=== PATIENT | female | born 1975 | race African-American/Black ===

== ENCOUNTER 2016-11-15 06:37 | Emergency (ER) | payer OTHER ==
[~2016-11-15] VITALS: Ht 170.2 cm; Wt 107.2 kg
[~2016-11-15 06:37] MED LIST: LISI-360 PO; SIMV20 PO
[2016-11-15 06:43] VITALS: BP 176/105; PULSE 83; RESP 16; TEMP 98.1; O2SAT 99
[2016-11-15 06:55] VITALS: BP 176/105; PULSE 83; RESP 18; TEMP 98.1; O2SAT 99
[2016-11-15] MEDS ORDERED: LISI10TA3 PO (06:55)
[2016-11-15] MEDS ORDERED: SIMV20TA PO (06:55)
--- NOTE | 2016-11-15 07:14 | PD ---
HPI Chief Complaint: Headache Time Seen by Provider: 07:04 Travel History International Travel<30 days: No Contact w/Intl Traveler<30days: No Traveled to known affect area: No History of Present Illness HPI 41yo F with PMH of HTN and migraine headache presents to the ED with c/o left sided headache for 2 days. States it is associated with nausea and NBNB vomiting, photophobia. It is now constant on left caodaism region. Pt tried to take her imitrex but vomited after. Denies any fever, neck pain, visual changes , focal weakness or numbness, chest pain, sob, abdominal pain. Pt states she had similar headache a few years ago. PFSH Past Medical History High Cholesterol: Yes Diminished Hearing: No Hypertension: Yes Immunizations Current: Yes Tetanus Vaccination: > 5 Years Influenza Vaccination: Yes ?: Unknown Past Surgical History Surgical History: No Previous Surgery Social History Alcohol Use: No Tobacco Use: No Substance Use: No Allergies-Medications (Allergen,Severity, Reaction): Coded Allergies: Latex (Verified Allergy, Severe, 11/15/16) Reported Meds & Prescriptions Reported Meds & Active Scripts Active Reported Simvastatin 20 Mg Tab 20 Mg PO DAILY Lisinopril 10 Mg Tab 10 Mg PO DAILY Review of Systems Except as stated in HPI: all other systems reviewed are Neg Physical Exam Narrative GENERAL: 41yo F in mild distress. SKIN: Focused skin assessment warm/dry. HEAD: Atraumatic. Normocephalic. EYES: Pupils equal and round at 3mm bilaterally. EOMI. No scleral icterus. No injection or drainage. ENT: No nasal bleeding or discharge. Mucous membranes pink and moist. NECK: No nuchal rigidity. CARDIOVASCULAR: Regular rate and rhythm. No murmur appreciated. RESPIRATORY: No accessory muscle use. Clear to auscultation. Breath sounds equal bilaterally. GASTROINTESTINAL: Abdomen soft, non-tender, nondistended. No rebound tenderness or guarding. MUSCULOSKELETAL: No obvious deformities. No clubbing. No cyanosis. No edema. NEUROLOGICAL: Awake and alert. No obvious cranial nerve deficits. Motor grossly within normal limits. Normal speech. PSYCHIATRIC: Appropriate mood and affect; insight and judgment normal. Data Data Last Documented VS Vital Signs Date Time Temp Pulse Resp B/P Pulse Ox O2 Delivery O2 Flow Rate FiO2 11/15/16 08:06 92 16 139/69 100 Room Air 11/15/16 06:55 98.1 Orders Ondansetron Inj (Zofran Inj) (11/15/16 07:15) Ketorolac Inj (Toradol Inj) (11/15/16 07:15) Sodium Chlor 0.9% 1000 Ml Inj (Ns 1000 M (11/15/16 07:15) Prochlorperazine Inj (Compazine Inj) (11/15/16 08:00) MDM Medical Decision Making Medical Screen Exam Complete: Yes Emergency Medical Condition: Yes Differential Diagnosis Migraine headache vs. tension headache vs. sinus headache Narrative Course 41yo F with history of migraine headache here with left sided headache associated with photophobia and nausea. No red flags. Will give toradol and zofran and reevaluate. Pt given toradol, zofran and compazine. Reevaluated at bedside and headache has resolved. Pt is no longer nauseous. BP is now 139/69. Return precautions given. Diagnosis Primary Impression: Headache Qualified Code: R51 - Acute nonintractable headache, unspecified headache type Patient Instructions: General Instructions Departure Forms: Tests/Procedures Additional Instructions: Please follow up with your PMD in 3-7 days. Return to the ED if symptoms worsen. Med/Other Pt SpecificInfo: Prescription(s) given Scripts Acetaminophen (Tylenol)325 Mg Log800 Mg PO Q6H PRN (PAIN SCALE 1 TO 4) #20 TAB Ref 0 Prov:MaloneJayna 11/15/16 Disposition: 01 DISCHARGE HOME Condition: Stable Jayna Malone DO Nov 15, 2016 07:14
[2016-11-15] MEDS ORDERED: SODIUM CHLOR 0.9% 1000 ML INJ 1,000 ML IV ONE (07:15)
[2016-11-15] MEDS ORDERED: ONDANSETRON HCL 4 MG/2 ML VIAL IV PUSH ONE (07:15)
[2016-11-15] MEDS ORDERED: KETOROLAC TROMETHAMINE 30 MG/ML (IVP) VIAL IV PUSH ONE (07:15)
[2016-11-15] MEDS ORDERED: PROCHLORPERAZINE INJ 10 MG/2 ML VIAL IV PUSH ONE (08:00)
[2016-11-15 08:06] VITALS: BP 139/69; PULSE 92; RESP 16; O2SAT 100
[2016-11-15] MEDS ORDERED: TYLE325T PO (08:21)
== END 2016-11-15 08:31 | disposition home or self-care (01) ==
LOC: PHED 06:37
DX: R51 Headache (principal); I10 Essential (primary) hypertension
CPT/HCPCS: 96361; 96374; 96375; 99284; J0780; J1885; J2405; J7030

== ENCOUNTER → 2016-12-31 | Outpatient (CLI) | payer OTHER ==
[~2016-12-31] MED LIST changes: -LISI-360 PO; +LISI10TA3 PO; -SIMV20 PO; +SIMV20TA PO; +TYLE325T PO
[2016-12-31 08:16] LABS: AUTOMATED NEUTROPHIL # 3.9 TH/MM3 (1.8-7.7); BASOPHIL % 0.4 % (0.0-2.0); EOSINOPHIL # 0.1 TH/MM3 (0-0.4); EOSINOPHIL % 1.4 % (0.0-4.0); HEMATOCRIT 37.5 % (35.0-46.0); HEMO FLAGS DIFF FINAL; LYMPH % 43.2 % (9.0-44.0); LYMPHOCYTE # 3.6 TH/MM3 (1.0-4.8); MEAN CELL VOLUME 75.5 FL (80.0-100.0); MEAN CORPUSCULAR HEMOGLOBIN 24.5 PG (27.0-34.0); MEAN CORPUSCULAR HGB CONC 32.4 % (32.0-36.0); MONO % 7.5 % (0.0-8.0); NEUT % 47.5 % (16.0-70.0); PLATELET COUNT 363 TH/MM3 (150-450); RED BLOOD COUNT 4.97 MIL/MM3 (4.00-5.30); RED CELL DISTRIBUTION WIDTH 14.1 % (11.6-17.2); WHITE BLOOD COUNT 8.2 TH/MM3 (4.0-11.0)
[2016-12-31 08:30] LABS: ANION GAP 6 MEQ/L (5-15); AST (GOT) 13 U/L (15-37); BICARBONATE 26.6 MEQ/L (21.0-32.0); BLOOD UREA NITROGEN 10 MG/DL (7-18); CHLORIDE 105 MEQ/L (98-107); GLOMERULAR FILTRATION RATE 130 ML/MIN (>89); GLUCOSE,FASTING 97 MG/DL (74-99); POTASSIUM 3.3 MEQ/L (3.5-5.1); SODIUM (NA) 138 MEQ/L (136-145)
[2016-12-31 08:31] LABS: ALT (GPT) 22 U/L (10-53)
[2016-12-31 08:39] LABS: ALKALINE PHOSPHATASE 103 U/L (45-117); FREE T4 3.78 NG/DL (0.76-1.46); HDL CHOLESTEROL 43.5 MG/DL (40.0-60.0); LDL CHOLESTEROL 79 MG/DL (0-99); TOTAL BILIRUBIN ADULT 0.4 MG/DL (0.2-1.0)
[2016-12-31 16:08] LABS: HEMOGLOBIN A1a 1.2 %; HEMOGLOBIN A1b 1.9 %; HEMOGLOBIN Ao 84.7 %; HEMOGLOBIN LA1C 1.9 %; HEMOGLOBIN P3 3.8 %
== END ==
LOC: CLAB 07:43
PROVIDERS: ATTEND Family Medicine
DX: G43.909 Migraine, unspecified, not intractable, without status migrainosus (principal); I10 Essential (primary) hypertension; K21.9 Gastro-esophageal reflux disease without esophagitis; R94.6 Abnormal results of thyroid function studies; E78.2 Mixed hyperlipidemia; R73.02 Impaired glucose tolerance (oral); Z11.4 Encounter for screening for human immunodeficiency virus [HIV]
CPT/HCPCS: 36415; 80053; 80061; 83036; 84439; 84443; 85025; 86703

== ENCOUNTER 2017-06-12 10:55 | Emergency (ER) | payer OTHER ==
[~2017-06-12] VITALS: Ht 170.2 cm; Wt 100.0 kg
[2017-06-12 11:06] VITALS: BP 194/86; PULSE 105; RESP 16; TEMP 98.3; O2SAT 99
[2017-06-12 11:20] LABS: BILIRUBIN, URINE NEG (NEG); BLOOD, URINE NEG (NEG); GLUCOSE,URINE NEG (NEG); KETONE, URINE NEG (NEG); NITRITE,URINE NEG (NEG); URINE LEUKOCYTE ESTERASE NEG (NEG)
[2017-06-12] MEDS ORDERED: ONDANSETRON ODT 4 MG TAB PO ONE (11:30)
[2017-06-12] MEDS ORDERED: LISI10TA PO (11:31)
--- NOTE | 2017-06-12 11:32 | PD ---
HPI Chief Complaint: GI Complaint Time Seen by Provider: 11:22 Travel History International Travel<30 days: No Contact w/Intl Traveler<30days: No Traveled to known affect area: No History of Present Illness HPI 41-year-old female states she has been having nausea with a couple episodes of nonbloody emesis over the past couple of days. She states that she had this last week but it resolved on its own. She states her last menstrual cycle was about the 11th of last month. She states her cycles are usually pretty regular. She denies any other concurrent complaints including fever, abdominal pain, diarrhea, congestion or other acute concerns. Quality is nonbloody. Severity is 3 episodes. She denies specific modifying factors. She states she has had this issue in the past. [facility] Past Medical History High Cholesterol: Yes Diminished Hearing: No Hypertension: Yes Immunizations Current: Yes ?: Unknown LMP: "LAST MONTH" Social History Alcohol Use: No Tobacco Use: No Substance Use: No Allergies-Medications (Allergen,Severity, Reaction): Coded Allergies: latex (Unverified Allergy, Severe, 06/12/17) Reported Meds & Prescriptions Reported Meds & Active Scripts Active Zofran Odt (Ondansetron Odt) 4 Mg Tab 4 Mg SL Q6HR PRN Reported Lisinopril-Hctz 10-12.5 Mg Tab 1 Tab PO DAILY Simvastatin 20 Mg Tab 20 Mg PO DAILY Review of Systems Except as stated in HPI: all other systems reviewed are Neg Physical Exam Narrative GENERAL: 41-year-old female who is well-appearing SKIN: Focused skin assessment warm/dry. HEAD: Atraumatic. Normocephalic. EYES: Pupils equal and round. No scleral icterus. No injection or drainage. ENT: No nasal bleeding or discharge. Mucous membranes pink and moist. NECK: Trachea midline. No JVD. CARDIOVASCULAR: Regular rate and rhythm. RESPIRATORY: No accessory muscle use. Clear to auscultation. Breath sounds equal bilaterally. GASTROINTESTINAL: Abdomen soft, non-tender, nondistended. MUSCULOSKELETAL: No edema. NEUROLOGICAL: Awake and alert. No obvious cranial nerve deficits. Motor grossly within normal limits. Normal speech. PSYCHIATRIC: Appropriate mood and affect; insight and judgment normal. Data Data Last Documented VS Vital Signs Date Time Temp Pulse Resp B/P (MAP) Pulse Ox O2 Delivery O2 Flow Rate FiO2 06/12/17 13:39 83 16 203/87 (125) 97 Room Air 06/12/17 11:06 98.3 Orders Orders Urinalysis - C+S If Indicated (06/12/17 11:08) Ed Urine Pregnancytest Poc (06/12/17 11:08) Ondansetron Odt (Zofran Odt) (06/12/17 11:30) Oral Rehydration (06/12/17 11:45) Promethazine Inj (Phenergan Inj) (06/12/17 12:15) Complete Blood Count With Diff (06/12/17 12:54) Comprehensive Metabolic Panel (06/12/17 12:54) Iv Access Insert/Monitor (06/12/17 12:54) Ondansetron Inj (Zofran Inj) (06/12/17 13:00) Sodium Chlor 0.9% 1000 Ml Inj (Ns 1000 M (06/12/17 13:00) Ed Discharge Order (06/12/17 13:49) Labs Laboratory Tests Test 06/12/17 11:10 06/12/17 13:10 Urine Collection Type CLEAN CATCH Urine Color YELLOW Urine Turbidity CL Urine pH 7.0 Urine Specific [place] 1.020 Urine Protein NEG mg/dL Urine Glucose (UA) NEG mg/dL Urine Ketones NEG mg/dL Urine Occult Blood NEG Urine Nitrite NEG Urine Bilirubin NEG Urine Leukocyte Esterase NEG Urine RBC 0-3 /hpf Urine Squamous Epithelial Cells 6-8 /hpf Urine Amorphous Sediment MOD Microscopic Urinalysis Comment CULT NOT INDICATED White Blood Count 6.5 TH/MM3 Red Blood Count 5.12 MIL/MM3 Hemoglobin 11.9 GM/DL Hematocrit 37.7 % Mean Corpuscular Volume 73.5 FL Mean Corpuscular Hemoglobin 23.3 PG Mean Corpuscular Hemoglobin Concent 31.6 % Red Cell Distribution Width 13.0 % Platelet Count 368 TH/MM3 Mean Platelet Volume 7.9 FL Neutrophils (%) (Auto) 72.4 % Lymphocytes (%) (Auto) 21.2 % Monocytes (%) (Auto) 3.4 % Eosinophils (%) (Auto) 0.1 % Basophils (%) (Auto) 2.9 % Neutrophils # (Auto) 4.7 TH/MM3 Lymphocytes # (Auto) 1.4 TH/MM3 Monocytes # (Auto) 0.2 TH/MM3 Eosinophils # (Auto) 0.0 TH/MM3 Basophils # (Auto) 0.2 TH/MM3 CBC Comment AUTO DIFF Differential Comment AUTO DIFF CONFIRMED Blood Urea Nitrogen 7 MG/DL Creatinine 0.51 MG/DL Random Glucose 109 MG/DL Total Protein 7.3 GM/DL Albumin 3.5 GM/DL Calcium Level 9.3 MG/DL Alkaline Phosphatase 109 U/L Aspartate Amino Transf (AST/SGOT) 12 U/L Alanine Aminotransferase (ALT/SGPT) 18 U/L Total Bilirubin 0.3 MG/DL Sodium Level 137 MEQ/L Potassium Level 3.3 MEQ/L Chloride Level 104 MEQ/L Carbon Dioxide Level 26.4 MEQ/L Anion Gap 7 MEQ/L Estimat Glomerular Filtration Rate 159 ML/MIN [facility] Medical Decision Making Medical Screen Exam Complete: Yes Emergency Medical Condition: Yes Medical Record Reviewed: Yes (Past history confirmed) Interpretation(s) CBC & BMP Diagram 06/12/17 13:10 Total Protein 7.3, Albumin 3.5, Calcium Level 9.3, Alkaline Phosphatase 109, Aspartate Amino Transf (AST/SGOT) 12 L, Alanine Aminotransferase (ALT/SGPT) 18, Total Bilirubin 0.3 Differential Diagnosis Gastroenteritis, dehydration, UTI Narrative Course We will check test, urinalysis and dose with Zofran and reevaluate. Patient agrees to plan. patient still vomiting, will dose with phenergan im and reassess patient still too nauseous for po challenge, will check labs and give iv zofran labs no emergent process, Patient denies any new complaints and states that they are feeling better. No further emesis, patient happy with care, all questions answered. Patient knows that follow up is incumbent on them and to return to the emergency room immediately if new or worsening symptoms develop. Patient given strict return precautions, vitals reviewed and are normal, agrees to further workup as an outpatient. Diagnosis Primary Impression: Vomiting Qualified Codes: R11.2 - Nausea with vomiting, unspecified Patient Instructions: General Instructions Additional Instructions: return as needed, Zofran as needed, follow with primary this week, keep hydrated , keep blood pressure log Med/Other Pt SpecificInfo: Prescription(s) given Scripts Ondansetron Odt (Zofran Odt) 4 Mg Tab 4 MG SL Q6HR Y for Nausea/Vomiting, #10 TAB 0 Refills Prov: Karine Riggs MD 06/12/17 Disposition: 01 DISCHARGE HOME Condition: Stable Karine Riggs MD Jun 12, 2017 11:32
[2017-06-12 11:35] LABS: URINE COLOR YELLOW (YELLW/STRAW)
[2017-06-12 11:37] LABS: AMORPHOUS SEDIMENT, URINE MOD; RBC, URINE 0-3 /hpf (0-3)
[2017-06-12] MEDS ORDERED: ZOFR4TAB3 SL (11:52)
[2017-06-12] MEDS ORDERED: PROMETHAZINE INJ 25 MG/ML VIAL IM ONE (12:15)
[2017-06-12] MEDS ORDERED: SODIUM CHLOR 0.9% 1000 ML INJ 1,000 ML IV ONE (13:00)
[2017-06-12] MEDS ORDERED: ONDANSETRON HCL 4 MG/2 ML VIAL IV PUSH ONE (13:00)
[2017-06-12 13:17] LABS: AUTOMATED NEUTROPHIL # 4.7 TH/MM3 (1.8-7.7); BASOPHIL # 0.2 TH/MM3 (0-0.2); BASOPHIL % 2.9 % (0.0-2.0); EOSINOPHIL % 0.1 % (0.0-4.0); HEMATOCRIT 37.7 % (35.0-46.0); HEMOGLOBIN 11.9 GM/DL (11.6-15.3); LYMPH % 21.2 % (9.0-44.0); LYMPHOCYTE # 1.4 TH/MM3 (1.0-4.8); MEAN CELL VOLUME 73.5 FL (80.0-100.0); MEAN CORPUSCULAR HEMOGLOBIN 23.3 PG (27.0-34.0); MEAN CORPUSCULAR HGB CONC 31.6 % (32.0-36.0); MEAN PLATELET VOLUME 7.9 FL (7.0-11.0); MONO % 3.4 % (0.0-8.0); MONOCYTE # 0.2 TH/MM3 (0-0.9); NEUT % 72.4 % (16.0-70.0); PLATELET COUNT 368 TH/MM3 (150-450); RED BLOOD COUNT 5.12 MIL/MM3 (4.00-5.30); WHITE BLOOD COUNT 6.5 TH/MM3 (4.0-11.0)
[2017-06-12 13:26] LABS: CHLORIDE 104 MEQ/L (98-107); SODIUM (NA) 137 MEQ/L (136-145)
[2017-06-12 13:29] LABS: ALBUMIN 3.5 GM/DL (3.4-5.0); BICARBONATE 26.4 MEQ/L (21.0-32.0); CALCIUM 9.3 MG/DL (8.5-10.1); GLUCOSE,RANDOM 109 MG/DL (74-106)
[2017-06-12 13:30] LABS: BLOOD UREA NITROGEN 7 MG/DL (7-18)
[2017-06-12 13:32] LABS: ALT (GPT) 18 U/L (10-53)
[2017-06-12 13:33] LABS: AST (GOT) 12 U/L (15-37); CREATININE 0.51 MG/DL (0.50-1.00); GLOMERULAR FILTRATION RATE 159 ML/MIN (>89)
[2017-06-12 13:34] LABS: TOTAL BILIRUBIN ADULT 0.3 MG/DL (0.2-1.0); TOTAL PROTEIN 7.3 GM/DL (6.4-8.2)
[2017-06-12 13:35] LABS: ALKALINE PHOSPHATASE 109 U/L (45-117)
[2017-06-12 13:39] VITALS: BP 203/87; PULSE 83; RESP 16; O2SAT 97
[2017-06-12 14:12] VITALS: BP 186/98
== END 2017-06-12 14:45 | disposition home or self-care (01) ==
LOC: PHED 10:55
DX: R11.2 Nausea with vomiting, unspecified (principal); I10 Essential (primary) hypertension; E78.00 Pure hypercholesterolemia, unspecified; Z79.899 Other long term (current) drug therapy
CPT/HCPCS: 80053; 81001; 84703; 85025; 96372; 96374; 99284; J2405; J2550; J7030

== ENCOUNTER → 2017-07-31 | Outpatient (CLI) | payer OTHER ==
[~2017-07-31] MED LIST changes: +LISI10TA PO; -LISI10TA3 PO; -TYLE325T PO; +ZOFR4TAB3 SL
[2017-07-31 07:40] LABS: AUTOMATED NEUTROPHIL # 2.1 TH/MM3 (1.8-7.7); BASOPHIL % 0.5 % (0.0-2.0); EOSINOPHIL # 0.1 TH/MM3 (0-0.4); EOSINOPHIL % 1.6 % (0.0-4.0); HEMATOCRIT 37.1 % (35.0-46.0); LYMPH % 51.6 % (9.0-44.0); MEAN CELL VOLUME 71.1 FL (80.0-100.0); MEAN CORPUSCULAR HGB CONC 32.3 % (32.0-36.0); MEAN PLATELET VOLUME 7.9 FL (7.0-11.0); MONO % 8.9 % (0.0-8.0); MONOCYTE # 0.5 TH/MM3 (0-0.9); NEUT % 37.4 % (16.0-70.0); PLATELET COUNT 338 TH/MM3 (150-450); RED BLOOD COUNT 5.22 MIL/MM3 (4.00-5.30); WHITE BLOOD COUNT 5.8 TH/MM3 (4.0-11.0)
[2017-07-31 08:10] LABS: ALBUMIN 3.2 GM/DL (3.4-5.0); AST (GOT) 11 U/L (15-37); BICARBONATE 26.3 MEQ/L (21.0-32.0); BLOOD UREA NITROGEN 8 MG/DL (7-18); CHLORIDE 109 MEQ/L (98-107); CHOLESTEROL 111 MG/DL (120-200); CREATININE 0.49 MG/DL (0.50-1.00); GLOMERULAR FILTRATION RATE 167 ML/MIN (>89); GLUCOSE,FASTING 107 MG/DL (74-99); SODIUM (NA) 143 MEQ/L (136-145)
[2017-07-31 08:19] LABS: ALKALINE PHOSPHATASE 113 U/L (45-117); ALT (GPT) 20 U/L (10-53); CHOLESTEROL/ HDL RATIO 2.99 RATIO; HDL CHOLESTEROL 37.1 MG/DL (40.0-60.0); LDL CHOLESTEROL 65 MG/DL (0-99); TOTAL BILIRUBIN ADULT 0.4 MG/DL (0.2-1.0); TOTAL PROTEIN 6.8 GM/DL (6.4-8.2); TRIGLYCERIDES 43 MG/DL (42-150)
[2017-07-31 22:43] LABS: HEMOGLOBIN A1C 5.9 % (4.3-6.0)
== END ==
LOC: CLAB 07:05
PROVIDERS: ATTEND Family Medicine
DX: K21.9 Gastro-esophageal reflux disease without esophagitis (principal); E78.2 Mixed hyperlipidemia; E03.9 Hypothyroidism, unspecified; I10 Essential (primary) hypertension; Z11.4 Encounter for screening for human immunodeficiency virus [HIV]
CPT/HCPCS: 36415; 80053; 80061; 83036; 84439; 84443; 85025; 86703

== ENCOUNTER → 2017-09-16 | Outpatient (CLI) | payer OTHER ==
[2017-09-16 11:29] LABS: HEMATOCRIT 37.7 % (35.0-46.0); HEMOGLOBIN 12.3 GM/DL (11.6-15.3); MEAN CELL VOLUME 71.9 FL (80.0-100.0); MEAN CORPUSCULAR HEMOGLOBIN 23.5 PG (27.0-34.0); MEAN CORPUSCULAR HGB CONC 32.7 % (32.0-36.0); PLATELET COUNT 307 TH/MM3 (150-450); RED BLOOD COUNT 5.24 MIL/MM3 (4.00-5.30); RED CELL DISTRIBUTION WIDTH 15.4 % (11.6-17.2); WHITE BLOOD COUNT 5.6 TH/MM3 (4.0-11.0)
[2017-09-16 11:57] LABS: FREE T4 4.94 NG/DL (0.76-1.46)
== END ==
LOC: CLAB 10:55
PROVIDERS: ATTEND Internal Medicine Endocrinology, Diabetes & Metabolism
DX: E05.81 Other thyrotoxicosis with thyrotoxic crisis or storm (principal)
CPT/HCPCS: 36415; 84439; 84443; 84445; 85027; 86376; 86800

== ENCOUNTER 2017-10-22 09:32 | Emergency (ER) | payer OTHER ==
[~2017-10-22] VITALS: Ht 170.2 cm; Wt 96.8 kg
[2017-10-22 09:36] VITALS: BP 170/95; PULSE 113; RESP 20; TEMP 97.5; O2SAT 98
[2017-10-22] MEDS ORDERED: MEDR4PAK PO (09:57)
[2017-10-22] MEDS ORDERED: DICL50TA PO (09:57)
[2017-10-22] MEDS ORDERED: CYCL10TA PO (09:59)
[2017-10-22] MEDS ORDERED: IBUP1TAB7 PO (09:59)
[2017-10-22] MEDS ORDERED: PROP20TA3 PO (09:59)
--- NOTE | 2017-10-22 09:59 | PD ---
HPI Chief Complaint: Back/ Neck Pain or Injury Time Seen by Provider: 09:41 Travel History International Travel<30 days: No Contact w/Intl Traveler<30days: No Traveled to known affect area: No History of Present Illness HPI 41-year-old female presents to the emergency department for evaluation of left low back pain that started on Saturday while sitting in a car. Patient states the pain is exacerbated by movement. It is slightly alleviated with certain positions. Patient currently rates the pain 10/10, to the left lower back, throbbing, that radiates down the back. She denies any traumatic injury. No fevers or chills. No loss of bowel or bladder control. She denies any anesthesias or paresthesias. She denies any chest pain or shortness of breath. No abdominal pain. No nausea, vomiting, diarrhea. She denies any urinary symptoms. She reports history of hypertension and is currently on propranolol. She saw her primary care physician and was given a prescription for Flexeril. She last took this yesterday. She took ibuprofen last night as well. 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 She has not taken any medications today for pain. Patient denies any history of IV drug use. Mild severity. PFSH Past Medical History Cardiovascular Problems: Yes (htn) High Cholesterol: Yes Diminished Hearing: No Hypertension: Yes Immunizations Current: Yes LMP: last month Social History Alcohol Use: No Tobacco Use: No Substance Use: No Allergies-Medications (Allergen,Severity, Reaction): Coded Allergies: latex (Unverified Allergy, Severe, 10/22/17) Reported Meds & Prescriptions Reported Meds & Active Scripts Active Zofran Odt (Ondansetron Odt) 4 Mg Tab 4 Mg SL Q6HR PRN Reported Lisinopril-Hctz 10-12.5 Mg Tab 1 Tab PO DAILY Simvastatin 20 Mg Tab 20 Mg PO DAILY Review of Systems Except as stated in HPI: all other systems reviewed are Neg Physical Exam Narrative GENERAL: Well-nourished, well-developed female patient, ambulatory. Afebrile. SKIN: Focused skin assessment warm/dry. No skin changes. HEAD: Normocephalic. Atraumatic. EYES: No scleral icterus. No injection or drainage. NECK: Supple, trachea midline. No JVD or lymphadenopathy. CARDIOVASCULAR: Regular rhythm without murmurs, gallops, or rubs. Bilateral radial and pedal pulses are 2+. Patient is slightly tachycardic, most likely due to pain. RESPIRATORY: Breath sounds equal bilaterally. No accessory muscle use. Lung sounds are clear to auscultation. GASTROINTESTINAL: Abdomen soft, non-tender, nondistended. No abdominal tenderness to palpation. MUSCULOSKELETAL: No cyanosis, or edema. Bilateral upper and lower extremity strength 5/5. All extremities are neurovascularly intact. BACK: No obvious deformity. No CVA tenderness. Patient has no midline spinal tenderness. She has tenderness over the left lumbar paraspinal musculature. Data Data Last Documented VS Vital Signs Date Time Temp Pulse Resp B/P (MAP) Pulse Ox O2 Delivery O2 Flow Rate FiO2 10/22/17 09:36 97.5 113 20 170/95 (120) 98 Orders Orders Ketorolac Inj (Toradol Inj) (10/22/17 10:00) Orphenadrine Inj (Norflex Inj) (10/22/17 10:00) Prednisone (Deltasone) (10/22/17 10:00) MDM Medical Decision Making Medical Screen Exam Complete: Yes Emergency Medical Condition: Yes Medical Record Reviewed: Yes Differential Diagnosis Muscle strain versus muscle spasm versus herniated disc versus sciatica Narrative Course 41-year-old female presents to the emergency department for evaluation of left low back pain that started on Saturday without traumatic injury. No red flag symptoms. She denies any other associated symptoms. Symptoms are consistent with muscle strain on exam. She has not taken anything today for the pain. Patient is given Toradol 60 mg IM, Norflex 60 mg IM. She is to continue her prescription for Flexeril as needed. I will discharge her with a prescription for diclofenac and a Medrol Dosepak. Patient will also be given note for work. She is to follow up with her primary care physician return here for any acute worsening of symptoms. The patient was discharged in stable condition with instructions, including return instructions and follow up instructions. Diagnosis Primary Impression: Back strain Qualified Codes: S39.012A - Strain of muscle, fascia and tendon of lower back , initial encounter Referrals: Primary Care Physician call for appointment Patient Instructions: Back Pain (ED), General Instructions Departure Forms: Tests/Procedures, Work Release Enter return to work date: Oct 25, 2017 Additional Instructions: Take diclofenac as directed as needed with food for pain. Do not take with other anti-inflammatories including ibuprofen and naproxen. Continue Flexeril as directed as needed. Take Medrol Dosepak as directed. Start this tomorrow Heating pad on low for 20 minutes 4-5 times daily Avoid heavy lifting. Follow-up with a primary care physician. Return to the emergency department for any acute worsening of symptoms. Med/Other Pt SpecificInfo: Prescription(s) given Scripts Methylprednisolone Dosepak (Medrol Dosepak) 4 Mg Dspk 4 MG PO DIRECTED, #1 DSPK 0 Refills Per Pharmacist direction Prov: Estella Choudhary 10/22/17 Diclofenac Potassium (Diclofenac Potassium) 50 Mg Tab 50 MG PO TID Y for PAIN SCALE 1 TO 10, #21 TAB 0 Refills Prov: Estella Choudhary 10/22/17 Disposition: 01 DISCHARGE HOME Condition: Stable Estella Choudhary Oct 22, 2017 09:59
[2017-10-22] MEDS ORDERED: predniSONE 20 MG TAB PO ONE (10:00)
[2017-10-22] MEDS ORDERED: ORPHENADRINE INJ 60 MG/2 ML AMP IM ONE (10:00)
[2017-10-22] MEDS ORDERED: KETOROLAC TROMETHAMINE 60 MG/2 ML (IM) VIAL IM ONE (10:00)
[2017-10-22 10:15] VITALS: BP 187/90; PULSE 100; RESP 16; O2SAT 98
== END 2017-10-22 10:26 | disposition home or self-care (01) ==
LOC: PHED 09:32
DX: S39.012A Strain of muscle, fascia and tendon of lower back, initial encounter (principal); I10 Essential (primary) hypertension; E78.00 Pure hypercholesterolemia, unspecified
CPT/HCPCS: 96372; 99283; J1885; J2360; J7512